=== PATIENT | male | born 1990 | race Caucasian/White ===

== ENCOUNTER 2022-02-17 09:46 | Emergency (ER) | payer SELFPAY ==
[~2022-02-17] VITALS: Ht 175.3 cm; Wt 99.8 kg
[2022-02-17 12:32] VITALS: BP 114/93
[2022-02-17] MEDS ORDERED: SODIUM CHLORIDE 0.9% 1,000 ML IV ONE (13:30)
[2022-02-17] MEDS ORDERED: MECLIZINE HCL 25 MG TAB PO ONE (15:15)
[2022-02-17 15:18] LABS: Basophils # (auto) 0 10 ^3/uL (0-0.2); Basophils % (auto) 0.4 % (0.0-2.0); Eosinophils # (auto) 0 10 ^3/uL (0-0.8); Eosinophils % (auto) 0.1 % (0.0-7.0); Hematocrit 33.1 % (41.0-53.0); Hemoglobin 11.6 g/dL (13.5-17.5); Lymphocytes % (auto) 17.9 % (10.0-50.0); Mean Corpuscular Hemoglobin 30.7 pg (28.0-32.0); Mean Corpuscular Hgb Conc. 35.1 g/dL (32.0-36.0); Mean Corpuscular Volume 87.4 fL (80.0-100.0); Monocytes # (auto) 0.5 10 ^3/uL (0-1.3); Monocytes % (auto) 4.2 % (0.0-12.0); Neutrophils # (auto) 8.6 10 ^3/uL (1.6-8.6); Neutrophils % (auto) 77.4 % (37.0-80.0); Red Blood Cells 3.79 10^6/uL (4.5-5.90); Red Cell Distribution Width 12.8 % (11.8-14.3)
== END 2022-02-17 16:08 | disposition home or self-care (01) ==
LOC: ER 09:46
DX: R04.0 Epistaxis (principal)
CPT/HCPCS: 36415; 85025; 96360; 99283; J7030; J8597